=== PATIENT | female | born 1970 | race Caucasian/White ===

== ENCOUNTER 2023-05-02 06:14 | Day surgery (SDC) | payer BC, SELFPAY ==
[2023-05-02] VITALS (19 sets, daily range): BP systolic 104–119; BP diastolic 57–80; BMI 24.8
[2023-05-02] MEDS: CELEBREX 200 MG PO (06:21)
[2023-05-02] MEDS: TYLENOL 1000 MG PO (06:21)
[2023-05-02] MEDS: HEPARIN 5000 UNITS SC (06:21)
[2023-05-02] MEDS: VANCOCIN 200 IV (06:38)
[2023-05-02] MEDS: NORMOSOL-R 1000 IV (06:38)
[2023-05-02] MEDS: DILAUDID 0.25 MG IV ×2 (10:28→10:43)
[2023-05-02] MEDS: DILAUDID 0.5 MG IV (10:59)
--- NOTE | 2023-05-02 12:11 | SUR.PHASEI ---
Pt opened eyes at 1204 and started c/o right eye pain. Eye not red. Dr Canchola made aware.
[2023-05-02] MEDS: ACULAR 0.5% EYE DROPS 1 DROP OPHTH (13:35)
[2023-05-02] MEDS: ROXICODONE 5 MG PO (13:51)
[2023-05-02] MEDS: TYLENOL 650 MG PO (16:20)
== END 2023-05-02 16:55 | disposition home or self-care (01) ==
LOC: SDS 06:14
PROVIDERS: ATTENDING PHYSICIAN Obstetrics & Gynecology Gynecologic Oncology; FAMILY PHYSICIAN Internal Medicine
DX: D25.9 Leiomyoma of uterus, unspecified (principal); N84.1 Polyp of cervix uteri; N80.03 Adenomyosis of the uterus; N83.202 Unspecified ovarian cyst, left side; N83.201 Unspecified ovarian cyst, right side
CPT/HCPCS: 58571; 88307; 88309; 86850; 86900; 86901; 88112

== ENCOUNTER → 2024-06-07 11:08 | Outpatient (REF) | payer BC, SELFPAY | LOC: HWWDC 11:08 | PROVIDERS: ATTENDING PHYSICIAN Nurse Practitioner Family; REFERRING PHYSICIAN Obstetrics & Gynecology | DX: Z12.31 Encounter for screening mammogram for malignant neoplasm of breast (principal) | CPT/HCPCS: 77063; 77067 ==